=== PATIENT | male | born 1950 | race Caucasian/White ===

== ENCOUNTER 2019-01-19 08:00 | Outpatient (CLI) | payer MEDICARE, OTHER ==
[2019-01-19 12:01] LABS: BASOPHILS # (AUTO) 0.1 10^3/uL (0.0-0.1); BASOPHILS % (AUTO) 0.6 %; EOSINOPHILS # (AUTO) 0.4 10^3/uL (0.0-0.7); EOSINOPHILS % (AUTO) 4.1 %; HGB - HEMOGLOBIN 14.4 g/dL (14.0-18.0); LYMPHOCYTES # (AUTO) 2.2 10^3/uL (1.5-3.5); LYMPHOCYTES % (AUTO) 24.9 %; MEAN CORPUSCULAR HGB CONC 32.5 g/dL (32.0-36.0); MEAN CORPUSCULAR VOLUME 95.5 fL (80.0-94.0); MEAN PLATELET VOLUME 12.4 fL (7.4-11.4); MONOCYTES # (AUTO) 0.9 10^3/uL (0.0-1.0); MONOCYTES % (AUTO) 10.1 %; NEUTROPHILS # (AUTO) 5.3 10^3/uL (1.5-6.6); PLT - PLATELET COUNT 219 10^3/uL (130-450); RED BLOOD COUNT 4.64 10^6/uL (4.70-6.10); RED CELL DISTRIBUTION WIDTH 13.1 % (12.0-15.0); WHITE BLOOD COUNT 8.8 x10^3/uL (4.8-10.8)
[2019-01-19 12:12] LABS: BILIRUBIN,URINE NEGATIVE (NEGATIVE); GLUCOSE, URINE (UA) NEGATIVE (NEGATIVE); KETONES,URINE (UA) NEGATIVE (NEGATIVE); LEUKOCYTE ESTERASE, URINE NEGATIVE (NEGATIVE); NITRITE,URINE NEGATIVE (NEGATIVE); OCCULT BLOOD,URINE NEGATIVE (NEGATIVE); PH,URINE 5.5 PH (5.0-7.5); PROTEIN,URINE NEGATIVE (NEGATIVE); UROBILINOGEN,URINE 0.2 (NORMAL) E.U./dL (NORMAL)
[2019-01-19 12:19] LABS: CLARITY,URINE CLOUDY (CLEAR)
[2019-01-19 12:25] LABS: ALBUMIN 4.4 g/dL (3.2-5.5); ALBUMIN/GLOBULIN RATIO 1.4 (1.0-2.2); ALKALINE PHOSPHATASE 74 IU/L (42-121); ALT ALANINE AMINOTRANSFERASE 41 IU/L (10-60); AST ASPARTATE AMINOTRANSFERASE 23 IU/L (10-42); BILIRUBIN,TOTAL 0.9 mg/dL (0.2-1.0); BUN - BLOOD UREA NITROGEN 14 mg/dL (6-20); CALCIUM 9.2 mg/dL (8.5-10.3); CARBON DIOXIDE - CO2 27 mmol/L (21-32); CHLORIDE 102 mmol/L (101-111); CHOL/HDL RATIO 4.1 (<5.0); CHOLESTEROL 157 mg/dL; CREATININE 0.8 mg/dL (0.6-1.2); GFR - MDRD 96 (>89); GLUCOSE 114 mg/dL (70-100); HDL CHOLESTEROL 38 mg/dL; LDL CHOLESTEROL,CALCULATED 84 mg/dL; LDL/HDL RATIO 2.2 (<3.6); SODIUM 138 mmol/L (135-145); TOTAL PROTEIN 7.6 g/dL (6.7-8.2); URIC ACID 4.6 mg/dL (2.6-7.2); VLDL CHOLESTEROL 35 mg/dL
[2019-01-19 12:26] LABS: HB2 TOTAL 15.3 g/dL; HEMOGLOBIN A1C 0.71 g/dL; HEMOGLOBIN A1C % 6.4 % (4.6-6.2)
[2019-01-19 12:28] LABS: BACTERIA,URINE Rare /HPF (None Seen); MUCUS,URINE Few Strands; RBC,URINE 0-5 /HPF (0-5); SQUAMOUS EPITHELIAL CELL,UR NONE SEEN (<= Few)
== END 2019-01-19 23:59 | disposition home or self-care (01) ==
LOC: LAB.WCP 08:00
PROVIDERS: ATTEND Physician Assistant
DX: I10 Essential (primary) hypertension (principal); E78.5 Hyperlipidemia, unspecified; R30.0 Dysuria; R73.9 Hyperglycemia, unspecified; Z12.5 Encounter for screening for malignant neoplasm of prostate; M10.9 Gout, unspecified
CPT/HCPCS: 36415; 80053; 80061; 81001; 83036; 84550; 85025; G0103; 83721; 84153; 87086

== ENCOUNTER 2019-03-08 09:00 | Outpatient (CLI) | payer MEDICARE, OTHER | END 2019-03-08 23:59 | disposition home or self-care (01) | LOC: LAB.WCP 09:00 | PROVIDERS: ATTEND Urology | DX: Z12.5 Encounter for screening for malignant neoplasm of prostate (principal) | CPT/HCPCS: 36415; G0103; 84153 ==

== ENCOUNTER 2019-12-11 08:29 | Outpatient (CLI) | payer MEDICARE, OTHER ==
--- NOTE | 2019-12-11 10:02 | XRAY Report ---
PROCEDURE: Lumbar Spine 2 View INDICATIONS: LUMBAR RADICULOPATHY TECHNIQUE: 3 views of the lumbar spine were acquired. COMPARISON: None. FINDINGS: Bones: 5 [id number] vertebrae are present. There is normal bony alignment. vertebral body comp ression fractures. No suspicious bony lesions. Note is made of mild degenerative disc disease to th e L5-S1 level where moderately severe such degeneration is found. At L4-5 and especially L5-S1 there is a finding of moderate facet osteoarthritis. Spinal and foraminal stenosis at L5-S1 likely is prese nt as a result. Soft tissues: Overlying bowel gas pattern is normal. No suspicious soft tissue calcifications. IMPRESSION: Lumbosacral junction degenerative changes are present to the degree that spinal and fora floresita stenosis at L5-S1 would be expected. No compression fracture found. Reviewed by: Waqar Smith MD on 12/11/2019 10:01 AM PDT Approved by: Waqar Smith MD on 12/11/2019 10:01 AM PDT Station ID: [id number]
== END 2019-12-11 08:30 | disposition home or self-care (01) ==
LOC: DI 08:29
PROVIDERS: ATTEND Physician Assistant Medical
DX: M51.17 Intervertebral disc disorders with radiculopathy, lumbosacral region (principal); M48.07 Spinal stenosis, lumbosacral region
CPT/HCPCS: 72100

== ENCOUNTER 2019-12-17 12:47 | Outpatient (CLI) | payer MEDICARE, OTHER ==
--- NOTE | 2019-12-17 13:43 | Ultrasound Report ---
PROCEDURE: Ankle Brachial Index INDICATIONS: PARESTHESIA OF FOOT TECHNIQUE: Ankle-brachial indices were obtained bilaterally and recorded. COMPARISONS: None. FINDINGS: Right ankle brachial index (WILBERT): 1.1 Left ankle brachial index (WILBERT): 1.1 Healing potential: Ankle pressures >55 mm Hg in non-diabetics and >80 mm Hg in diabetics are likely to achieve primary h ealing of ischemic foot ulcers. Toe pressures >30 mm Hg are likely to achieve primary healing of ischemic foot ulcers, toe or transme tatarsal amputations. IMPRESSION: Normal ankle-brachial index on each side. Reviewed by: Jamari Cox MD on 12/17/2019 12:42 PM [facility] Approved by: Jamari Cox MD on 12/17/2019 12:42 PM YOS[facility]ANY Station ID: [id number]
== END 2019-12-17 12:48 | disposition home or self-care (01) ==
LOC: DI 12:47
PROVIDERS: ATTEND Physician Assistant Medical
DX: R20.2 Paresthesia of skin (principal)
CPT/HCPCS: 93922

== ENCOUNTER 2020-03-27 08:30 | Outpatient (CLI) | payer MEDICARE, OTHER ==
[2020-03-27 12:40] LABS: BASOPHILS # (AUTO) 0.1 10^3/uL (0.0-0.1); BASOPHILS % (AUTO) 0.6 %; EOSINOPHILS # (AUTO) 0.2 10^3/uL (0.0-0.7); EOSINOPHILS % (AUTO) 2.8 %; HCT - HEMATOCRIT 44.5 % (42.0-52.0); HGB - HEMOGLOBIN 14.3 g/dL (14.0-18.0); LYMPHOCYTES # (AUTO) 2.3 10^3/uL (1.5-3.5); LYMPHOCYTES % (AUTO) 29.3 %; MEAN CORPUSCULAR HEMOGLOBIN 30.4 pg (27.0-31.0); MEAN CORPUSCULAR HGB CONC 32.1 g/dL (32.0-36.0); MEAN CORPUSCULAR VOLUME 94.7 fL (80.0-94.0); MEAN PLATELET VOLUME 12.5 fL (7.4-11.4); MONOCYTES # (AUTO) 0.7 10^3/uL (0.0-1.0); MONOCYTES % (AUTO) 9.2 %; NEUTROPHILS # (AUTO) 4.5 10^3/uL (1.5-6.6); NEUTROPHILS % (AUTO) 57.7 %; PLT - PLATELET COUNT 213 10^3/uL (130-450); WHITE BLOOD COUNT 7.7 x10^3/uL (4.8-10.8)
[2020-03-27 13:05] LABS: ALBUMIN 4.2 g/dL (3.2-5.5); ALBUMIN/GLOBULIN RATIO 1.4 (1.0-2.2); ALKALINE PHOSPHATASE 63 IU/L (42-121); ALT ALANINE AMINOTRANSFERASE 35 IU/L (10-60); AST ASPARTATE AMINOTRANSFERASE 25 IU/L (10-42); BILIRUBIN,TOTAL 0.7 mg/dL (0.2-1.0); BUN - BLOOD UREA NITROGEN 16 mg/dL (6-20); CALCIUM 9.1 mg/dL (8.5-10.3); CARBON DIOXIDE - CO2 25 mmol/L (21-32); CHLORIDE 106 mmol/L (101-111); CREATININE 0.9 mg/dL (0.6-1.2); GFR - MDRD 84 (>89); GLUCOSE 115 mg/dL (70-100); POTASSIUM 4.3 mmol/L (3.5-5.0); SODIUM 140 mmol/L (135-145); TOTAL PROTEIN 7.3 g/dL (6.7-8.2); URIC ACID 7.4 mg/dL (2.6-7.2)
[2020-03-27 13:29] LABS: CRP - C-REACTIVE PROTEIN < 1.0 mg/dL (0-1.0)
[2020-03-29 09:47] LABS: ANA SCREEN NEGATIVE (NEGATIVE)
== END 2020-03-27 23:59 | disposition home or self-care (01) ==
LOC: LAB.WCP 08:30
PROVIDERS: ATTEND Family Medicine
DX: I10 Essential (primary) hypertension (principal); M25.50 Pain in unspecified joint
CPT/HCPCS: 36415; 80053; 84550; 85025; 85651; 86038; 86140

== ENCOUNTER 2020-03-28 08:15 | Outpatient (CLI) | payer MEDICARE, OTHER ==
--- NOTE | 2020-03-28 13:55 | XRAY Report ---
PROCEDURE: Cervical Spine w/Flex/Ext INDICATIONS: CERVICAL DISC DISORDER W/RADICULOPATHY TECHNIQUE: 6 views of the cervical spine were acquired. COMPARISON: None. FINDINGS: Bones: No fractures or dislocations to the T1 level. No suspicious bony lesions. There is normal r nancy of motion between flexion and extension, with preserved normal bony alignment. Degenerative disc disease is moderately severe from C4 through C7, most pronounced at C4-5, C5-6 and C6-7. Subluxation is not associated but there is foraminal stenosis from C4 through C6 6, on oblique views from facet osteoarthritis and uncovertebral degenerative change. Note is made of no significant subluxation abno rmality on flexion and extension imaging. Soft tissues: Prevertebral soft tissues are normal in thickness. IMPRESSION: No prior trauma found. Moderately severe degenerative disc disease and facet osteoarthri tis over the middle and lower thirds of the cervical spine, with spinal and foraminal stenosis likely present due to significant degree from C4 inferiorly. As noted above there is no sign of abnormal cisneros bluxation during flexion and extension imaging. Reviewed by: Waqar Smith MD on 03/28/2020 1:53 PM PST Approved by: Waqar Smith MD on 03/28/2020 1:53 PM PST Station ID: [id number]
== END 2020-03-28 08:16 | disposition home or self-care (01) ==
LOC: DI 08:15
PROVIDERS: ATTEND Family Medicine
DX: M50.121 Cervical disc disorder at C4-C5 level with radiculopathy (principal); M48.02 Spinal stenosis, cervical region